=== PATIENT | male | born 2000 | race African-American/Black ===

== ENCOUNTER 2020-12-10 05:32 | Emergency (ER) | payer OTHER ==
[~2020-12-10] VITALS: Ht 177.8 cm; Wt 77.3 kg
[2020-12-10] MEDS ORDERED: EXCETAB33 PO (05:43)
[2020-12-10] MEDS ORDERED: IBUP-1022 PO (05:43)
[2020-12-10] MEDS ORDERED: NS 1,000 ML IV ONE (06:15)
[2020-12-10] MEDS ORDERED: diphenhydrAMINE 50MG/ML VIAL (J1200) IV ONE (06:15)
[2020-12-10] MEDS ORDERED: IBUPROFEN 800 MG TAB PO ONE (06:15)
[2020-12-10] MEDS ORDERED: METOCLOPRAMIDE INJ 10MG/2ML VIAL (J2765 PER 1) IV ONE (06:15)
[2020-12-10] MEDS ORDERED: ACETAMINOPHEN TAB 650MG DOSE (2X325MG) PO ONE (06:15)
--- NOTE | 2020-12-10 06:52 | REPVR ---
PROCEDURE INFORMATION: Exam: CT Head Without Contrast Exam date and time: 12/10/2020 6:13 AM Age: 20 years old Clinical indication: Pain; Headache; Migraine; Aura effect not specified; Other: No idea; Additional info: Migraine x2 months TECHNIQUE: Imaging protocol: Computed tomography of the head without contrast. Radiation optimization: All CT scans at this facility use at least one of these dose optimization techniques: automated exposure control; mA and/or kV adjustment per patient size (includes targeted exams where dose is matched to clinical indication); or iterative reconstruction. COMPARISON: No relevant prior studies available. FINDINGS: Brain: Normal. No hemorrhage. Unremarkable white matter. No mass effect. Cerebral ventricles: No ventriculomegaly. Bones/joints: Unremarkable. No acute fracture. Paranasal sinuses: There is mild ethmoid mucosal thickening. There is moderate left sphenoid sinus mucosal thickening. Mastoid air cells: Visualized mastoid air cells are well aerated. Soft tissues: Unremarkable. IMPRESSION: No acute intracranial abnormality. Sinus mucosal disease. Electronically signed by: Ila Fregoso On 12/10/2020 06:52:47 AM
[2020-12-10 07:20] VITALS: BP 141/71
== END 2020-12-10 07:36 | disposition home or self-care (01) ==
LOC: M ED 05:32
DX: G43.909 Migraine, unspecified, not intractable, without status migrainosus (principal)
CPT/HCPCS: 70450; 96361; 96374; 99284; J1200; J2765